=== PATIENT | male | born 1995 | race Caucasian/White ===

== ENCOUNTER 2018-04-15 23:17 | Emergency (ER) | payer MEDICAID ==
[2018-04-16 00:06] LABS: APPEARANCE,URINE CLEAR; BILIRUBIN,URINE NEGATIVE (NEGATIVE); COLOR,URINE YELLOW; GLUCOSE, URINE NEGATIVE (NEGATIVE); KETONES,URINE NEGATIVE (NEGATIVE); LEUKOCYTE ESTERASE,URINE NEGATIVE (NEGATIVE); NITRITE,URINE NEGATIVE (NEGATIVE); PROTEIN,URINE NEGATIVE (NEGATIVE); URINE SPECIFIC GRAVITY 1.019; UROBILINOGEN,URINE NEGATIVE mg/dL (<2.0)
--- NOTE | 2018-04-16 00:25 | ER Document Report ---
ED General - General Chief Complaint: Scrotal Pain, Acute Onset Stated Complaint: TESTICLE PAIN Time Seen by Provider: 04/15/18 23:50 TRAVEL OUTSIDE OF THE [place] IN LAST 30 DAYS: No - HPI Patient complains to provider of: Right testicle pain Notes: Patient coming in for evaluation of right testicle pain. Patient states ongoing for approximately a week intermittent increase in the last 12-24 hours. Patient states he is from [place] eating in [facility]. Patient states he has been increasing his activity walking more up and down stairs. Patient states normally wears briefs however has been wearing more boxers noticed that wearing boxers few days pain started. Patient states pain in the back of the right testicle denies any hernias bulges denies any penile discharge dysuria. Patient states not taking anything for pain control. Patient otherwise resting comfortably upon my evaluation. Denies any recent sexual intercourse - Related Data Allergies/Adverse Reactions: No Known Allergies Allergy (Unverified 04/16/18 02:52) Past Medical History - Social History Smoking Status: Never Smoker Chew tobacco use (# tins/day): No Frequency of alcohol use: Rare Drug Abuse: Marijuana Family History: Reviewed & Not Pertinent Patient has suicidal ideation: No Patient has homicidal ideation: No Renal/ Medical History: Denies: Hx Peritoneal Dialysis GI Medical History: Reports: Hx Gastroesophageal Reflux Disease Review of Systems - Review of Systems Constitutional: No symptoms reported EENT: No symptoms reported Cardiovascular: No symptoms reported Respiratory: No symptoms reported Gastrointestinal: No symptoms reported Genitourinary: No symptoms reported Male Genitourinary: Testicular pain Musculoskeletal: No symptoms reported Skin: No symptoms reported Hematologic/Lymphatic: No symptoms reported Neurological/Psychological: No symptoms reported -: Yes All other systems reviewed and negative Physical Exam - Vital signs Vitals: Temp Pulse Resp BP Pulse Ox 98.3 F 52 L 18 128/79 H 98 04/15/18 23:24 04/15/18 23:24 04/15/18 23:24 04/15/18 23:24 04/15/18 23:24 Interpretation: Normal - General General appearance: Appears well, Alert - HEENT Head: Normocephalic, Atraumatic Eyes: Normal Pupils: PERRL - Respiratory Respiratory status: No respiratory distress Chest status: Nontender Breath sounds: Normal Chest palpation: Normal - Cardiovascular Rhythm: Regular Heart sounds: Normal auscultation Murmur: No - Abdominal Inspection: Normal Distension: No distension Bowel sounds: Normal Tenderness: Nontender Organomegaly: No organomegaly - Genitourinary Inspection: Normal Tenderness: Nontender - Patient reports to the area of the epididymis as far as area of tenderness however this is not reproducible on examination, Epididymis tender Cremasteric reflex: Normal Scrotum: Normal - Back Back: Normal, Nontender - Extremities General upper extremity: Normal inspection, Nontender, Normal color, Normal ROM , Normal temperature General lower extremity: Normal inspection, Nontender, Normal color, Normal ROM , Normal temperature, Normal weight bearing. No: Tere's sign - Neurological Neuro grossly intact: Yes Cognition: Normal Orientation: AAOx4 [place] Coma Scale Eye Opening: Spontaneous [place] Coma Scale Verbal: Oriented [place] Coma Scale Motor: Obeys Commands [place] Coma Scale Total: 15 Speech: Normal Motor strength normal: LUE, RUE, LLE, RLE Sensory: Normal - Psychological Associated symptoms: Normal affect, Normal mood - Skin Skin Temperature: Warm Skin Moisture: Dry Skin Color: Normal Course - Re-evaluation Re-evalutation: 04/16/18 06:03 Patient has no critical pathology seen on urinalysis or scrotal more likely irritation from wearing unsupportive underwear. Patient will be discharged home. - Vital Signs Vital signs: Temp Pulse Resp BP Pulse Ox 98.3 F 59 L 18 130/90 H 100 04/15/18 23:24 04/16/18 03:01 04/16/18 03:01 04/16/18 03:01 04/16/18 03:01 Discharge - Discharge Clinical Impression: Right testicular pain Condition: Good Disposition: HOME, SELF-CARE Instructions: Anti-Inflammatory Medication ([facility]), Testicular Pain ([facility]) Additional Instructions: Your evaluation today does not show any acute abnormality to explain right testicle pain. This may be due to not wearing supportive underwear over the last few days. I recommend taking Tylenol Motrin for pain control as prescribed. I would recommend wearing supportive briefs. Return to ER symptoms worsen follow-up with your primary care physician. Prescriptions: Ibuprofen [Motrin 600 mg Tablet] 600 mg PO Q8HP PRN #21 tablet PRN Reason: Forms: Return to Work
[2018-04-16 01:32] LABS: CHLAM PCR NOT DETECTED (NOT DETECT); GON PCR NOT DETECTED (NOT DETECT)
--- NOTE | 2018-04-16 02:31 | RADIOLOGY REPORT (SQ) ---
EXAM DESCRIPTION: US SCROTUM COMPLETED DATE/TME: 04/16/2018 00:05 HISTORY: Right testicular pain. COMPARISON: None. TECHNIQUE: Real-time sonographic images of the scrotal contents obtained using a linear multi hertz transducer. Color and spectral Doppler imaging was also obtained. FINDINGS: Testicles: The right testicle measures 3.3 x 3.0 x 3.4 cm. The left testicle measures 3.0 x 2.6 x 3.8 cm. No solid intratesticular mass identified. Homogenous echogenicity of the testicles. Epididymis:No abnormalities of the epididymis. Hydrocele:No hydrocele. Blood flow:Normal arterial and venous blood flow identified bilaterally. Other:No additional findings. IMPRESSION: 1. No abnormality identified in the testicles. Normal blood flow identified bilaterally.
[2018-04-16 03:02] VITALS: BP 130/90
== END 2018-04-16 03:01 | disposition home or self-care (01) ==
LOC: ER 23:17
DX: N50.811 Right testicular pain (principal)
CPT/HCPCS: 76870; 81001; 87491; 87591; 93976; 99284